=== PATIENT | female | born 1980 | race Caucasian/White ===

== ENCOUNTER → 2024-11-20 | Outpatient (CLI) | payer BC, SELFPAY ==
--- NOTE | 2024-11-20 08:54 | ART_ITS ---
Reason For Study: Poor Circulation of Leg Procedure A bilateral lower extremity continuous wave Doppler with analog waveform analysis and ankle brachial indexes. Left Segmental Pressures Left brachial= 117mmHg. Left posterior tibial artery = 154mmHg. Left dorsalis pedis artery = 139mmHg. Left digit = 89 mmHg. Right Segmental Pressures Right brachial= 118mmHg. Right posterior tibial artery = 141mmHg. Right dorsalis pedis artery = 136mmHg. Right digit = 88 mmHg. Indices The right ankle brachial index by the posterior tibial artery is 1.19. The right ankle brachial index by the dorsalis pedis is 1.15. The right digital-brachial index is 0.75. The left ankle brachial index by the posterior tibial artery is 1.31. The left ankle brachial index by the dorsalis pedis is 1.18. The left digital-brachial index is 0.75. VL/Ankle Brachial Index Interpretation Summary Right ANMOL 1.19, normal. TBI and Doppler/PVR waveforms of the right ankle normal at rest. Left ANMOL 1.31, normal. TBI and Doppler/PVR waveforms of the left ankle normal a t rest. Ordering Physician: Radhames Strong Referring Physician: RADHAMES STRONG MD Performed By: Gabriela Moss RDCS/RVT
== END | disposition home or self-care (01) ==
LOC: CVS 08:52
PROVIDERS: PCP Family Medicine; Referring Provider Family Medicine; Visit Provider Family Medicine
DX: I73.9 Peripheral vascular disease, unspecified (principal)
CPT/HCPCS: 93922